=== PATIENT | female | born 1995 | race African-American/Black ===

== ENCOUNTER 2025-05-28 08:59 | Emergency (ER) | payer OTHER, SELFPAY ==
[2025-05-28 09:07] VITALS: BP 118/43; BP 122/74; PULSE 83; PULSE 90; RESP 22; TEMP 36.9; O2SAT 99; BMI 64.6
--- NOTE | 2025-05-28 09:20 | ED_ITS ---
HPI - Back Pain/Injury General Chief Complaint: Back Pain/Injury Stated Complaint: LOW BACK PAIN,SHOOTING DOWN LEGS/UP BACK Time Seen by Provider: 05/28/25 16:00 Source: patient, family and EMS Mode of arrival: EMS Limitations: no limitations History of Present Illness ED Provider: ROGER HPI Narrative: 29 yo female with obesity here with c/o bending down to pick something up yesterday she felt a pop in her lower back and now she has severe pain across the back, it radiates into both legs. She notes no saddle anesthesia but she cannot walk. She has been in bed. She states she didn't know she urinated on herself until she was picked up by EMS and they told her she was covered in urine. She denies a known urge to urinate. She has no prior back surgery or injury to this degree. She is not on thinners and no hx of TOÑO SEARS elicited complaint: back pain and back injury Onset (ago): day(s) (1) Timing: progressively worsening Severity: severe Similar Symptoms Previously: No Quality: sharp Location: lumbar spine Radiation: left upper leg and right upper leg Exacerbating factors: movement, sitting upright, walking and coughing/sneezing Relieving factors: none Context: bending Associated symptoms: urinary incontinence Work related injury: No Related Data Allergies Allergy/AdvReac Type Severity Reaction Status Date / Time coconut Allergy Rash Verified 05/28/25 15:21 nut - unspecified Allergy Rash Verified 05/28/25 15:21 Review of Systems Review of Systems: Constitutional : No Weight loss, No Fever, No Chills, ENT/Mouth : No Hearing loss, No Ear Pain, No Nasal Congestion, No Sinus Pain, No Hoarseness, No sore throat, No Rhinorrhea, No Swallowing Difficulty Cardiovascular : No Chest Pain, No SOB Respiratory : No Cough, No Dyspnea Gastrointestinal : No Nausea, No Vomiting, No Diarrhea, No abdominal Pain, No Hematochezia, No Melena Genitourinary : No Dysuria, No Urinary Frequency, No Hematuria, No Urinary Incontinence, Musculoskeletal : positive back pain Skin : No Skin Lesions, No rash Neuro : No Weakness, No Numbness, No Paresthesias, pos loss of bowel or bladder incontinence, no saddle anesthesia Yes all other systems are reviewed and are negative PMFSH Past Medical History Attestation statement: The following information was validated with the patient. Source: old records reviewed Medical History Obesity Social History Social History (Updated 05/28/25 @ 10:00 by Nicolasa Pacheco DO) Patient Tobacco Use Status: Never used Tobacco Smoked in Last 30 Days: No Advance Directives: No Advance Directives Information Provided: Yes Do you have a plan to hurt others: No Plan Physical Exam Vital Signs: Vital Signs: Last Vital Signs Temp 97.5 F 05/28/25 14:18 Pulse 78 05/28/25 14:18 Resp 14 05/28/25 14:18 BP 108/69 05/28/25 14:18 Pulse Ox 97 05/28/25 14:18 O2 Del Method Room Air 05/28/25 14:18 BMI result Body Mass Index 64.6 Appearance: Alert. Oriented X3. No acute distress. Eyes: Pupils equal, round and reactive to light. ENT: Pharynx normal. Neck: Normal inspection. Neck supple. CVS: Normal heart rate and rhythm. Pulses normal. Respiratory: No respiratory distress. Breath sounds normal. Back: diffuse low back pain ttp Abdomen: Soft and nontender. Skin: Skin warm and dry. Normal skin color. Normal skin turgor. Extremities: No lower extremity edema. No calf ttp Neuro: Oriented X 3. L5 5/5 bilaterally, SILT intact, I cannot obtain reflexes due to body habitus, no clonus, pos pain on initial bilateral leg lifts. Course Course Course Narrative: signed out to Dr. Myers pending workup 4pm Medications Administered Discontinued Medications Generic Name Dose Route Start Last Admin Trade Name Orion PRN Reason Stop Dose Admin Acetaminophen 975 mg 05/28/25 14:50 05/28/25 15:22 Acetaminophen 325 Mg Tablet PO 05/28/25 14:51 975 mg ONCE ONE Administration Dexamethasone Sodium Phosphate 6 mg 05/28/25 09:17 05/28/25 09:31 Dexamethasone Sod Phosphate 4 Mg/Ml Vial IVPUSH 05/28/25 09:18 6 mg ONCE ONE Administration Diazepam 2.5 mg 05/28/25 09:17 05/28/25 09:32 Diazepam 10 Mg/2 Ml Cartridge IVPUSH 05/28/25 09:18 2.5 mg STAT STA Administration Ketorolac Tromethamine 15 mg 05/28/25 09:17 05/28/25 09:31 Ketorolac Tromethamine 15 Mg/Ml Vial IVPUSH 05/28/25 09:18 15 mg ONCE ONE Administration Morphine Sulfate 15 mg 05/28/25 14:50 05/28/25 15:21 Morphine Sulfate Immed Release 15 Mg Tablet PO 05/28/25 14:51 15 mg ONCE ONE Administration Medical Decision Making Medical Decision Making MDM Narrative: 29 yo female with obesity here with c/o severe low back pain radiating down both legs with urinary incontinence at this time I have ordered IV pain control, IV dexamethasone and obtain MRI. I received sign-out from my colleague Dr. Pacheco MRI is pending At 18:27, I was informed by the patient's nurse that the patient wants to leave against medical advice. Patient's mother is in the room with the patient demanding that we take her IV out, a no longer want to wait for the MRI. I discussed with the patient that we can not rule out cauda equina, and the implications of leaving against medical advice, including permanent disability. At 08:36, I was informed by the patient's nurse that the patient changed her mind and she does want the MRI. Patient was informed that she should refrain from eating. If patient does have a neurologic emergency such as cauda equina, she have to be emergently transferred, and she should remain NPO. Patient very upset that she was asked to not eat. At 18:55, I was informed by the patient's nurse again that the patient decided to leave against medical advice Differential Diagnosis Differential Diagnoses: The differential diagnosis associated with the presentation includes back spasm, disc herniation, cauda equina given new urinary incontinence. Lab Data Labs: Lab Results 05/28/25 Range/Units 15:55 Urine Color Mcdonald Urine Appearance Cloudy Urine pH 7.5 (5.0-9.0) Ur Specific Dewy Rose 1.010 (1.005-1.025) Urine Protein 30 (1+) H (Neg-Trace) mg/dL Urine Glucose (UA) Negative (Negative) mg/dL Urine Ketones Trace (Negative) mg/dL Urine Blood Large (3+) H (Negative) Urine Nitrite Positive H (Negative) Ur Leukocyte Esterase Moderate (2+) H (Negative) Urine RBC >20 H (0-2) /HPF Urine WBC >50 H (0-5) /HPF Ur Squamous Epith Cells 3-5 (0-2) /HPF Urine Bacteria 4+ (None Seen) Hyaline Casts 3-5 (0-2) /LPF Independent Historian Clinical information obtained from an independent historian. History obtained from or confirmed by: EMS Discharge Plan Discharge Clinical Impression: Lumbar radiculopathy Patient Disposition: Left Against Medical Advice Instructions: Acute Low Back Pain (ED) Additional Instructions: You are leaving against medical advice. A severe neurologic condition could not be ruled out. Please follow-up with your primary care physician tomorrow. If you have any worsening or new symptoms, please return to the emergency room or call 911 Stand Alone Forms: Against Medical Advice Print Language: French
[2025-05-28] MEDS: diazePAM 10 MG/2 ML CARTRIDGE 2.5 MG IVPUSH (09:32)
--- OUTSIDE RECORDS SUMMARY | 2025-05-28 10:46 | XMS_ITS | Clinical Summary ---
Author Organization [facility] Address [address] [place] [address] Care Team Providers Care Schedule Maker Name Role Phone Unavailable Primary Care Provider Unavailabl e Source Comments PLEASE NOTE, if this patient is a minor, it may be UNLAWFUL to discuss sensitive information that is contained in these records (such as FAMILY PLANNING, MENTAL HEALTH or SUBSTANCE ABUSE) with the minor patient's parent or other person without the patient's specific authorization.[facility] Social History Tobacco Use Types Packs/Day Years Used Date Smoking Tobacco: Never Assessed Social Connections Answer Date Recorded Social Connections and Isolation 0 04/16/2019 Financial Resource Strain Answer Date R ecorded Financial Resource Strain 0 2018 Stress Answer Date Recorded Stress 0 04/16/2019 Physical Activity Answer Date Recorded Physical Activity 0 04/16/2019 Food Insecurity Answer Date Recorded Food 0 04/16/2019 Transportation Needs Answer Date Record ed Transportation 0 04/16/2019 Housing Stability Answer Date Recorded Housing 0 04/16/2019 Safety and Environment Answer Date Geo rded Safety 0 04/16/2019 Utilities Answer Date Recorded Utilities 0 04/16/2019 Employment Answer Date Recorded Employment 0 04/16/2019 Comments Unknown Sex and Gender Information Value Date Recorded Sex Assigned at Not on file Legal Sex Female 1:15 PM PDT Gender Identity Not on file Sexual Orientation Not on file Plan of Treatment Not on file [place]
[2025-05-28 14:18] VITALS: BP 108/69; PULSE 78; RESP 14; TEMP 36.4; O2SAT 97
[2025-05-28] MEDS: Morphine Sulfate Immed Release 15 MG TABLET PO (15:21)
--- NOTE | 2025-05-28 16:00 | PC.NURSE ---
pt medicated per OCT for 06/01 pain- pt awaiting MRI
[2025-05-28 16:03] LABS: Appearance Urine Cloudy; Glucose Urine UA Negative (Negative); PH 7.5 (5.0-9.0); Specific Gravity - Urine 1.010 (1.005-1.025); UMIC TRIGGER UACC YES
[2025-05-28 16:06] LABS: UACC Culture Trigger YES
--- NOTE | 2025-05-28 19:08 | PC.NURSE ---
Pt wanting to leave AMA because she no longer wants to wait for the MRI. Pt states she has been here all day and has not been able to eat d/t the MRI. Pt's is at bedside and very agitated. States she wants to leave. Pt has been notified that MRI said they could take her at 1840 and patient has gone back and forth on whether or not she wants to stay for the scan. notified and spoke with pt. Ultimately pt said she had to go home. Pt was given AMA form and discharge paperwork. She understands the risks involved with leaving AMA. Pt signed paperwork and is leaving with .
[2025-05-28 19:12] VITALS: BP 108/69; PULSE 78; RESP 14; TEMP 36.4; O2SAT 97
== END 2025-05-28 19:12 | disposition left against medical advice (07) ==
PROVIDERS: Emergency Medicine; Emergency Provider Emergency Medicine
DX: M54.16 Radiculopathy, lumbar region (principal); M54.50 Low back pain, unspecified; Z53.29 Procedure and treatment not carried out because of patient's decision for other reasons
CPT/HCPCS: 81001; 81003; 87086; 96374; 96375; 99284; J1100; J1885; J3360